=== PATIENT | female | born 1975 | race Caucasian/White ===

== ENCOUNTER → 2020-01-30 10:01 | Outpatient (CLI) | payer OTHER, SELFPAY ==
[2020-02-02 07:09] LABS: Alder IgE <0.10 kU/L (Class 0); Alternaria alternata IgE <0.10 kU/L (Class 0); Aspergillus fumigatus IgE <0.10 kU/L (Class 0); Box Elder IgE <0.10 kU/L (Class 0); Cladosporium herbarum IgE <0.10 kU/L (Class 0); Cottonwood IgE <0.10 kU/L (Class 0); D farinae IgE <0.10 kU/L (Class 0); D pteronyssinus IgE <0.10 kU/L (Class 0); Dog Dander IgE <0.10 kU/L (Class 0); Elm Tree IgE <0.10 kU/L (Class 0); Immunoglobulin E 56 IU/mL (6-495); Mountain Cedar IgE <0.10 kU/L (Class 0); Mouse Urine Proteins IgE <0.10 kU/L (Class 0); Nettle IgE <0.10 kU/L (Class 0); Oak Tree IgE <0.10 kU/L (Class 0); Penicillium chrysogen IgE <0.10 kU/L (Class 0); Pigweed, Common IgE <0.10 kU/L (Class 0); Ragweed, Short <0.10 kU/L (Class 0); Sheep Sorrel IgE <0.10 kU/L (Class 0); Silver Birch IgE <0.10 kU/L (Class 0); Timothy Grass IgE <0.10 kU/L (Class 0); Walnut Allery IgE < 0.10 kU/L (Class 0); White ash IgE <0.10 kU/L (Class 0)
[2020-02-15 14:53] LABS: Cat Dander IgE <0.10
== END ==
PROVIDERS: Referring Provider Registered Nurse Diabetes Educator; Visit Provider Registered Nurse Diabetes Educator
DX: R51 Headache (principal); F41.9 Anxiety disorder, unspecified; T78.40XA Allergy, unspecified, initial encounter
CPT/HCPCS: 36415; 82785; 86003

== ENCOUNTER → 2020-06-21 08:57 | Outpatient (CLI) | payer OTHER, MEDICAID, SELFPAY ==
[2020-06-21 09:58] LABS: Hematocrit 40.3 % (36-46); Hemoglobin 13.5 g/dL (12.0-16.0); Mean Corpuscular HGB Conc 33.6 % (30-36); Mean Corpuscular Hemoglobin 29.2 PG (26-34); Mean Corpuscular Volume 86.8 fL (80-100); Platelet Count 145 X10^3/uL (150-400); Red Blood Cell Count 4.64 X10^6/uL (4.0-5.2); Red Cell Distribution Width 12.8 % (11.6-14.8); White Blood Cell Count 5.6 X10^3/uL (4.5-11.0)
[2020-06-21 10:33] LABS: Alanine Aminotransferase 17 IU/L (<35); Albumin 4.1 g/dL (3.5-5.0); Albumin Globulin Ratio 1.5 (1.0-2.8); Alkaline Phosphatase 56 U/L (38-126); Aspartate Aminotransferase 25 IU/L (14-36); BUN Creatinine Ratio 27.9 (6-22); Bilirubin Total 0.7 mg/dL (0.2-1.3); Blood Urea Nitrogen 17 mg/dL (7-17); Calcium 9.4 mg/dL (8.4-10.2); Carbon Dioxide 30 mmol/L (22-32); Chloride 105 mmol/L (98-107); Cholesterol 172 mg/dL (140-199); Estimated Glomerular Filt Rate > 60.0 mL/min (>60); Globulin 2.8 g/dL (1.7-4.1); Glucose 84 mg/dL (70-100); HDL Cholesterol 60 mg/dL (40-60); HEMOLYSIS < 15 (0-50); LDL Cholesterol Calculated 93 mg/dL (<100); Potassium 4.4 mmol/L (3.4-5.1); Sodium 137 mmol/L (137-145); Total Protein 6.9 g/dL (6.3-8.2); Triglycerides 96 mg/dL (35-150)
[2020-06-21 11:01] LABS: TSH w/ Reflex to FT4 4.27 uIU/mL (0.47-4.68)
== END ==
PROVIDERS: PCP Registered Nurse Diabetes Educator; Referring Provider Registered Nurse Diabetes Educator; Visit Provider Registered Nurse Diabetes Educator
DX: Z00.00 Encounter for general adult medical examination without abnormal findings (principal); F41.9 Anxiety disorder, unspecified; G43.909 Migraine, unspecified, not intractable, without status migrainosus
CPT/HCPCS: 36415; 80053; 80061; 84443; 85027

== ENCOUNTER → 2020-07-21 13:42 | Outpatient (CLI) | payer OTHER, MEDICAID, SELFPAY ==
--- NOTE | 2020-07-21 13:42 | DI.MG.S_ITS ---
BILATERAL DIGITAL SCREENING MAMMOGRAM 3D/2D WITH CAD: 07/21/2020 CLINICAL: Routine screening. Family history of breast cancer. Comparison is made to exams dated: 12/21/2015 mammogram, 01/30/2017 mammogram, 02/08/2018 mammogram, and 05/12/2019 mammogram - outside location. The tissue of both breasts is heterogeneously dense. This may lower the sensitivity of mammography. Current study was also evaluated with a Computer Aided Detection (CAD) system. There are grouped calcifications with associated biopsy clip in the left breast. No significant masses, calcifications, or other findings are seen in either breast. There has been no significant interval change. IMPRESSION: BENIGN There is no mammographic evidence of malignancy. A 1 year screening mammogram is recommended. This exam was interpreted at Station ID: [id number]. NOTE: For mammograms, a report in lay terms will be sent to the patient. Approximately 15% of breast malignancies will not be visualized mammographically. In the management of a palpable breast mass, a negative mammogram must not discourage biopsy of a clinically suspicious lesion. Electronically Signed By: Umang Pan M.D. at/:07/23/2020 08:48:23 letter sent: Normal Exam ACR BI-RADS Category 2: Benign Finding(s) 3342F
== END ==
PROVIDERS: PCP Registered Nurse Diabetes Educator; Referring Provider Registered Nurse Diabetes Educator; Visit Provider Registered Nurse Diabetes Educator
DX: Z12.31 Encounter for screening mammogram for malignant neoplasm of breast (principal); Z80.3 Family history of malignant neoplasm of breast
CPT/HCPCS: 77063; 77067

== ENCOUNTER → 2020-09-12 07:35 | Outpatient (CLI) | payer OTHER, MEDICAID, SELFPAY ==
[2020-09-12] MEDS: COVID-19 VACC, Ad26(JANSSEN)/PF 0.5 ML IM (07:43)
== END ==
PROVIDERS: PCP Registered Nurse Diabetes Educator; Visit Provider Internal Medicine
DX: Z23 Encounter for immunization (principal)
CPT/HCPCS: 0031A; 91303

== ENCOUNTER → 2021-07-23 15:53 | Outpatient (CLI) | payer OTHER, SELFPAY ==
--- NOTE | 2021-07-23 15:55 | DI.MG.S_ITS ---
BILATERAL DIGITAL SCREENING MAMMOGRAM 3D/2D WITH CAD: 07/23/2021 CLINICAL: Routine screening. Family history of breast cancer. Comparison is made to exams dated: 07/21/2020 mammogram - [facility], 05/12/2019 mammogram, and 02/08/2018 mammogram - outside location. The tissue of both breasts is heterogeneously dense. This may lower the sensitivity of mammography. Current study was also evaluated with a Computer Aided Detection (CAD) system. There are benign calcifications in the left breast. There also is a biopsy clip in the left breast. No significant masses, calcifications, or other findings are seen in either breast. There has been no significant interval change. IMPRESSION: BENIGN There is no mammographic evidence of malignancy. A 1 year screening mammogram is recommended. This exam was interpreted at Station ID: [id number]. NOTE: For mammograms, a report in lay terms will be sent to the patient. Approximately 15% of breast malignancies will not be visualized mammographically. In the management of a palpable breast mass, a negative mammogram must not discourage biopsy of a clinically suspicious lesion. Electronically Signed By: Paco Guillermo M.D., jr/ana:07/24/2021 09:34:49 letter sent: Normal Exam ACR BI-RADS Category 2: Benign Finding(s) 3342F
== END ==
PROVIDERS: PCP Registered Nurse Diabetes Educator; Referring Provider Registered Nurse Diabetes Educator; Visit Provider Registered Nurse Diabetes Educator
DX: Z12.31 Encounter for screening mammogram for malignant neoplasm of breast (principal)
CPT/HCPCS: 77063; 77067

== ENCOUNTER → 2022-09-04 16:24 | Outpatient (CLI) | payer OTHER, SELFPAY ==
--- NOTE | 2022-09-04 16:25 | DI.MG.S_ITS ---
BILATERAL DIGITAL SCREENING MAMMOGRAM 3D/2D WITH CAD: 09/04/2022 CLINICAL: Routine screening. Family history of breast cancer. Comparison is made to exams dated: 07/23/2021 mammogram, 07/21/2020 mammogram - [facility], 05/12/2019 mammogram, and 01/30/2017 mammogram - outside location. Both breasts are heterogeneously dense, which may obscure small masses (category c / 51-75% glandular tissue). Current study was also evaluated with a Computer Aided Detection (CAD) system. There are benign calcifications in both breasts. There also is a biopsy clip in the left breast. No significant masses, calcifications, or other findings are seen in either breast. There has been no significant interval change. IMPRESSION: BENIGN There is no mammographic evidence of malignancy. A 1 year screening mammogram is recommended. Based on Tyrer-Cuzick model (a risk assessment model), the patient's lifetime risk is 25.9% and her 10 year risk is 6.2%. If a patient has an elevated risk, a more comprehensive evaluation should be considered and/or a referral to a genetic counselor. The [place] [employer], [employer], and NCCN Guidelines advise the consideration of Breast MRI as an adjunct to screening mammography in patients whose Lifetime risk to develop breast cancer is 20% or higher. This exam was interpreted at Station ID: [id number]. NOTE: For mammograms, a report in lay terms will be sent to the patient. Approximately 15% of breast malignancies will not be visualized mammographically. In the management of a palpable breast mass, a negative mammogram must not discourage biopsy of a clinically suspicious lesion. Electronically Signed By: Bib blackwell/ana:09/05/2022 09:04:04 letter sent: Normal Exam ACR BI-RADS Category 2: Benign Finding(s) 3342F
== END ==
PROVIDERS: PCP Nurse Practitioner Family; Referring Provider Nurse Practitioner Family; Visit Provider Nurse Practitioner Family
DX: Z12.31 Encounter for screening mammogram for malignant neoplasm of breast (principal); Z80.3 Family history of malignant neoplasm of breast
CPT/HCPCS: 77063; 77067

== ENCOUNTER 2023-07-10 21:48 | Emergency (ER) | payer OTHER, SELFPAY ==
[2023-07-10 22:00] VITALS: BP 136/59; PULSE 69; RESP 16; TEMP 36.9; O2SAT 98; BMI 24.2
--- NOTE | 2023-07-10 22:01 | PC.NURSE ---
pt was skiing on when she injured her right knee, states she heard/felt a pop but there was no swelling or bruising to the area, pt has been able to tolerate weight bearing until today she has not been able to tolerate weight bearing, pt took aleve tonight without any relief. knee does not appear swollen and no obvious deformity noted
--- NOTE | 2023-07-10 22:28 | ED_ITS ---
HPI - Extremity Injury (Lower) General Chief Complaint: Extremity Injury, Lower Stated Complaint: rt knee injury Time Seen by Provider: 07/10/23 21:53 Source: patient and family Mode of arrival: Wheelchair History of Present Illness HPI Narrative: 47-year-old female presents with right knee pain after reportedly falling to the ground several hours prior to arrival after her knee ?buckled?. Pain is described as a dull, throbbing ache. Patient reports injuring her right knee on 06/30 while downhill skiing and reports evaluation by orthopedist the following day with concern for anterior cruciate ligament injury. Patient reports that she has been walking several miles a day on her knee and has been relatively comfortable until today's episode. Patient reports negative x-rays taken at the time of injury. Patient reports having difficulty obtaining MRI of her knee. No medications used for symptom relief. Patient arrives via private vehicle. Patient is awake, alert in no apparent distress and maintaining her own airway. Related Data Home Medications Medication Instructions Recorded Confirmed levonorgestrel 21 mcg/24 hours (8 intrauterine 01/30/20 05/06/22 yrs) 52 mg intrauterine device (Mirena) Previous Rx's Medication Instructions Recorded rizatriptan 10 mg tablet (Maxalt) See Rx Instructions PO .COMPLEX 06/24/21 #30 tabs valacyclovir 500 mg tablet 500 mg PO BID PRN outbreak #30 tabs 06/24/21 escitalopram oxalate 20 mg tablet 20 mg PO DAILY #30 tabs 08/06/22 Allergies Allergy/AdvReac Type Severity Reaction Status Date / Time No Known Drug Allergies Allergy Unverified 05/06/22 14:25 Review of Systems Review of Systems Narrative: See HPI for pertinent positives, otherwise review of systems negative Patient History Medical History High risk HPV infection Wears glasses Allergies Anxiety (~1995) Migraines (~1992) Headache Fractures (~1993) Hearing loss (~2007) Irregular menstrual cycle (~1989) Herpes (~2000) Surgical History Anesthesia History of biopsy (~2017) History of tonsillectomy and adenoidectomy (~1980) History of ear surgery Family History Grandmother No problems noted. Social History Smoking Status: Current every day smoker alcohol intake: current substance use type: does not use Smoking Status: Current every day smoker alcohol intake frequency: holidays/special occasions only Substance Use Type: marijuana Exam Initial Vital Signs Initial Vital Signs: Vital Signs Temperature 98.5 F 07/10/23 22:00 Pulse Rate 69 07/10/23 22:00 Respiratory Rate 16 07/10/23 22:00 Blood Pressure 136/59 L 07/10/23 22:00 Pulse Oximetry 98 07/10/23 22:00 Oxygen Delivery Method Room Air 07/10/23 22:00 Const General: cooperative, healthy appearing, comfortable, well developed, well groomed, No acute distress, anxious, No diaphoretic and No ill appearing HENMT Head: normal to inspection, normocephalic and atraumatic Eyes General: Yes appearance normal, both eyes and all related structures Neck Neck: normal visual inspection Resp Effort & Inspection: normal respiratory effort, able to speak in complete sentences and no respiratory distress Cardio Rate: regular rate Rhythm: regular rhythm GI Inspection: non-distended Other: Exam deferred Back/Spine/Pelvis Back: normal to inspection Skin General: no rashes or lesions noted Neuro General: patient alert, patient awake, patient oriented x3 and moves all extremities Extrem Right lower extremity: normal capillary refill Other: Right medial knee tenderness, with minor right knee effusion. Range of motion not limited Psych Appearance: grossly normal and well kempt Speech and Movement: speech and movement normal Course Course Course Narrative: See [facility] Vital Signs Vital signs: Vital Signs - 8 hr 07/10/23 22:00 Temperature 98.5 F Pulse Rate 69 Respiratory Rate 16 Blood Pressure 136/59 L Pulse Oximetry 98 Oxygen Delivery Method Room Air [facility] - Extremity Injury (Lower) Differential Diagnosis Differential diagnosis: Likely acute internal derangement of knee, fracture of femur and other (knee strain, meniscus tear, acute fracture tibia) [facility] Narrative Medical decision making narrative: Patient presents with history right knee pain and likely internal derangement of right knee secondary to fall drain downhill skiing. Patient has been active, ambulatory and with manageable, relatively minor discomfort. Patient appears to have been walking with ?knee buckling? resulting in further injury likely ligamentous injury. Minor knee effusion. Likelihood of underlying bony abnormalities this fracture is low. X-rays ordered but ultimately declined by patient. Pain control discussed with patient and patient wanted to avoid narcotics. Recommendation given free alternating use of ibuprofen/acetaminophen for pain control and continued use of rest, ice and elevation. Patient encouraged to follow up with Orthopedics for further evaluation and management and to obtain MRI right knee as an outpatient. Patient encouraged to use crutches for nonweightbearing. Return precautions given. Patient discharged home in stable condition. Discharge Plan Departure Patient Disposition: Home Clinical Impression: Knee pain, right Qualifiers: Chronicity: acute Qualified Code(s): M25.561 - Pain in right knee Instructions: DI for Knee Pain Activity Restrictions/Additional Instructions: Use alternating dosages of ibuprofen/acetaminophen as directed and as needed for symptom relief. Use knee brace daily. Nonweightbearing. Follow up with Orthopedics as soon as possible for further evaluation and management. Prescriptions: Continued escitalopram oxalate 20 mg tablet 20 mg PO DAILY Qty: 30 0RF Rx Instructions: Take one tab by mouth daily. Mirena 20 mcg/24 hours (5 yrs) 52 mg intrauterine device intrauterine rizatriptan [Maxalt] 10 mg tablet See Rx Instructions PO .COMPLEX Qty: 30 3RF Rx Instructions: take 1 tab at onset of headache; if no relief may repeat 1 tab after at least 2 hrs; max = 3 tabs/24 hr PO valacyclovir 500 mg tablet 500 mg PO BID PRN (Reason: outbreak) Qty: 30 2RF Rx Instructions: Take 1 tab twice daily for 3 days at onset of outbreak. Contains enough for multiple outbreaks. Referrals: Lashawn Vale FNP-[facility] [Primary Care Provider] - Alec Cassidy MD [Physician] - As soon as possible Stand Alone Forms: Patient Portal/API
== END 2023-07-10 22:36 | disposition home or self-care (01) ==
PROVIDERS: Emergency Provider Emergency Medicine; PCP Nurse Practitioner Family
DX: M25.561 Pain in right knee (principal)
CPT/HCPCS: 99281; 99282

== ENCOUNTER 2023-08-19 17:18 | Emergency (ER) | payer OTHER, SELFPAY ==
[2023-08-19 17:27] VITALS: BP 120/56; PULSE 65; RESP 18; TEMP 36.8; O2SAT 98; BMI 25.0
--- NOTE | 2023-08-19 18:10 | DI.US.S_ITS ---
PROCEDURE: US PERIPH VENOUS LOW EXTREM RT INDICATIONS: NUMBNESS, EDEMA 7 DAYS POST RIGHT ARTHROSCOPIC KNEE SURGERY TECHNIQUE: Real-time imaging, as well as color and pulse Doppler interrogation, were performed of the lower extremity deep veins from the inguinal ligament to the popliteal fossa, with documentation of the visualized calf veins. COMPARISON: None. FINDINGS: The common femoral, femoral, popliteal, and the visualized calf veins are normally compressible, and free of intraluminal thrombus. Color and pulse Doppler demonstrate normal phasic intraluminal flow. There is normal augmentation response to distal compression maneuver. IMPRESSION: No evidence of DVT in visualized right lower extremity veins. Dictated by: aBron Spence M.D. on 08/19/2023 at 19:13 Approved by: Baron Spence M.D. on 08/19/2023 at 19:16
[2023-08-19 18:33] LABS: Add Manual Diff / Slide Review NO; Basophils Absolute Auto 100 /uL (0-100); Eosinophils Absolute Auto 300 /uL (0-450); Eosinophils Percent Auto 3.7 % (2-4); Hematocrit 36.3 % (36-46); Hemoglobin 12.4 g/dL (12.0-16.0); Lymphocytes Absolute Auto 1800 /uL (1100-4500); Lymphocytes Percent Auto 23.4 % (25-40); Mean Corpuscular Hemoglobin 29.1 PG (26-34); Mean Corpuscular Volume 85.6 fL (80-100); Monocytes Absolute Auto 600 /uL (0-900); Monocytes Percent Auto 7.5 % (3-14); Neutrophils Absolute Auto 5000 /uL (1500-7000); Neutrophils Percent Auto 64.4 % (50-75); Platelet Count 178 X10^3/uL (150-400); Red Blood Cell Count 4.25 X10^6/uL (4.0-5.2); Red Cell Distribution Width 12.5 % (11.6-14.8); White Blood Cell Count 7.8 X10^3/uL (4.5-11.0)
[2023-08-19 18:44] LABS: Lactate (Lactic Acid) 0.6 mmol/L (0.7-2.1)
[2023-08-19 18:45] LABS: Alanine Aminotransferase 23 IU/L (<35); Albumin 4.1 g/dL (3.5-5.0); Albumin Globulin Ratio 1.3 (1.0-2.8); Alkaline Phosphatase 56 U/L (38-126); Aspartate Aminotransferase 26 IU/L (14-36); Bilirubin Total 0.7 mg/dL (0.2-1.3); Blood Urea Nitrogen 13 mg/dL (7-17); Calcium 9.5 mg/dL (8.4-10.2); Carbon Dioxide 25 mmol/L (22-32); Chloride 104 mmol/L (98-107); Estimated Glomerular Filt Rate > 60 mL/min (>60); Globulin 3.1 g/dL (1.7-4.1); Glucose 89 mg/dL (70-100); HEMOLYSIS < 15 (0-50); Potassium 4.3 mmol/L (3.4-5.1); Sodium 137 mmol/L (137-145); Total Protein 7.2 g/dL (6.3-8.2)
--- NOTE | 2023-08-19 20:08 | ED_ITS ---
HPI - Extremity Problem General Chief complaint: Extremity Problem,Nontraumatic Stated complaint: Right leg post op issues Time Seen by Provider: 08/19/23 18:09 Source: patient Mode of arrival: Family Vehicle History of Present Illness HPI Narrative: 48-year-old woman who had knee surgery including ACL meniscus repair in [place] 7 days ago. She presents today complaining of her leg being increasing swollen and red. She notes that she has been up on the leg and ambulating more than had been recommended. She works as a teacher in multiple different schools, getting in and out of her car to get into the buildings has been more activity than she had anticipated. She has also not taken the opportunity to ice her leg during the day. She is icing at night and she is keeping it elevated. Related Data Home Medications Medication Instructions Recorded Confirmed levonorgestrel 21 mcg/24 hours (8 intrauterine 01/30/20 05/06/22 yrs) 52 mg intrauterine device (Mirena) Previous Rx's Medication Instructions Recorded rizatriptan 10 mg tablet (Maxalt) See Rx Instructions PO .COMPLEX 06/24/21 #30 tabs valacyclovir 500 mg tablet 500 mg PO BID PRN outbreak #30 tabs 06/24/21 escitalopram oxalate 20 mg tablet 20 mg PO DAILY #30 tabs 08/06/22 Allergies Allergy/AdvReac Type Severity Reaction Status Date / Time No Known Drug Allergies Allergy Unverified 05/06/22 14:25 Review of Systems Review of Systems Narrative: Pertinent positive and negative findings as per HPI Patient History Medical History High risk HPV infection Wears glasses Allergies Anxiety (~1995) Migraines (~1992) Headache Fractures (~1993) Hearing loss (~2007) Irregular menstrual cycle (~1989) Herpes (~2000) Surgical History Anesthesia History of biopsy (~2017) History of tonsillectomy and adenoidectomy (~1980) History of ear surgery Family History Grandmother No problems noted. Social History Smoking Status: Current every day smoker alcohol intake: current substance use type: does not use Smoking Status: Current every day smoker alcohol intake frequency: holidays/special occasions only Substance Use Type: marijuana Exam Initial Vital Signs Initial Vital Signs: Vital Signs Temperature 98.2 F 08/19/23 17:27 Pulse Rate 65 08/19/23 17:27 Respiratory Rate 18 08/19/23 17:27 Blood Pressure 120/56 L 08/19/23 17:27 Pulse Oximetry 98 08/19/23 17:27 Oxygen Delivery Method Room Air 08/19/23 17:27 General: Alert appropriate in no acute distress Respiratory: Able to speak in full sentences, no obvious respiratory distress Skin: No obvious rashes, warm and dry Neurologic: Grossly intact no obvious asymmetries or abnormalities Psych: appropriate insight and affect, cooperative Right lower extremity is slightly more swollen than the left. All of the laparoscopic incisions are healing nicely. There is no surrounding erythema. She has as expected postoperatively amount of pain in her knee. She is able to toe touch. This does not appear to be the severe pain expected with septic arthritis. She does not have any midline calf tenderness. She notes slight decreased sensation in the entire calf and foot in a stocking-like distribution along with inflammation in the entire area. She does have good pedal pulses and good capillary refill Course Orders Ordered: ED Orders 08/19/23 18:10 US periph venous low extrem rt Stat 08/19/23 18:23 Complete Blood Count AUTO DIFF Stat Comprehensive Metabolic Panel Stat Lactate (Lactic Acid) Stat Vital Signs Vital signs: Vital Signs - 8 hr 08/19/23 17:27 Temperature 98.2 F Pulse Rate 65 Respiratory Rate 18 Blood Pressure 120/56 L Pulse Oximetry 98 Oxygen Delivery Method Room Air MDM - Extremity (Nontraumatic) Lab Data 08/19/23 18:23 08/19/23 18:23 Labs: Lab Results 08/19/23 Range/Units 18:23 WBC 7.8 (4.5-11.0) X10^3/uL RBC 4.25 (4.0-5.2) X10^6/uL Hgb 12.4 (12.0-16.0) g/dL Hct 36.3 (36-46) % MCV 85.6 (80-100) fL MCH 29.1 (26-34) PG MCHC 34.0 (30-36) % RDW 12.5 (11.6-14.8) % Plt Count 178 (150-400) X10^3/uL Neut % (Auto) 64.4 (50-75) % Lymph % (Auto) 23.4 L (25-40) % [place] % (Auto) 7.5 (3-14) % Eos % (Auto) 3.7 (2-4) % Baso % (Auto) 1.0 (0-2) % Neut # (Auto) 5000 (1877-8814) /uL Lymph # (Auto) 1800 (0729-6103) /uL [place] # (Auto) 600 (0-900) /uL Eos # (Auto) 300 (0-450) /uL Baso # (Auto) 100 (0-100) /uL Sodium 137 (137-145) mmol/L Potassium 4.3 (3.4-5.1) mmol/L Chloride 104 (98-107) mmol/L Carbon Dioxide 25 (22-32) mmol/L BUN 13 (7-17) mg/dL Creatinine 0.59 (0.52-1.04) mg/dL Estimated GFR > 60 (>60) mL/min BUN/Creatinine Ratio 22.0 (6-22) Glucose 89 (70-100) mg/dL Lactate 0.6 L (0.7-2.1) mmol/L Calcium 9.5 (8.4-10.2) mg/dL Total Bilirubin 0.7 (0.2-1.3) mg/dL AST 26 (14-36) IU/L ALT 23 (<35) IU/L Alkaline Phosphatase 56 (38-126) U/L Total Protein 7.2 (6.3-8.2) g/dL Albumin 4.1 (3.5-5.0) g/dL Globulin 3.1 (1.7-4.1) g/dL Albumin/Globulin Ratio 1.3 (1.0-2.8) MDM Narrative Medical decision making narrative: CC: Right leg pain increased swelling redness and paresthesia 7 days postop right meniscal surgery Complicating co-morbidities: Knee surgery 7 days ago Data collected from: patient Differential considered: Normal postop pain, septic joint, cellulitis, DVT Exam documented above, pertinent findings include: Leg is slightly more swollen than the left leg. There is no dramatic redness, surgical sites are healing nicely. Lab Test results independently reviewed as above. Pertinent findings: CBC is unremarkable Chemistries are reassuring Imaging studies independently reviewed: Ultrasound of the lower extremity does not show any evidence of DVT Discussion: 48-year-old woman 7 days postop who has returned to work and is doing quite a bit of walking and ambulating and noticing increasing swelling and tenderness. We talked about actually taking some time to keep the leg elevated. Using ice during the day, compression socks, elevating night and ways to continue elevation while she is sleeping. Reassurance is given. Reviewed all of the blood work and imaging studies. She will follow up with her orthopedist and she does have access to her electronic medical record to share labs and imaging studies with her orthopedist in [place]. Questions are answered and she is safe for discharge Discharge Plan Departure Patient Disposition: Home Clinical Impression: Acute pain of right lower extremity, Post-operative pain Instructions: DI for Knee Arthroscopy Activity Restrictions/Additional Instructions: Thank you for coming in today Your ultrasound does not show evidence of a blood clot. Your labs are reassuring and there is no evidence of postoperative infection or infection inside the joint. The swelling in the decreased sensation in the lower part of your leg are all within the realm of normal postoperative healing. You likely would benefit from having your leg increased and resting more frequently. It may be beneficial trying to ice your knee during the day as well. As much as you can do to decrease overall activity and truly allow your leg to heal we will be beneficial. It is safe for you to go home at this time. I do recommend you follow-up with your orthopedic surgeon. If you have worsening symptoms, fevers, increasing redness or pain it would be very appropriate to return to the ER Prescriptions: No Action escitalopram oxalate 20 mg tablet 20 mg PO DAILY Qty: 30 0RF Rx Instructions: Take one tab by mouth daily. Mirena 20 mcg/24 hours (5 yrs) 52 mg intrauterine device intrauterine rizatriptan [Maxalt] 10 mg tablet See Rx Instructions PO .COMPLEX Qty: 30 3RF Rx Instructions: take 1 tab at onset of headache; if no relief may repeat 1 tab after at least 2 hrs; max = 3 tabs/24 hr PO valacyclovir 500 mg tablet 500 mg PO BID PRN (Reason: outbreak) Qty: 30 2RF Rx Instructions: Take 1 tab twice daily for 3 days at onset of outbreak. Contains enough for multiple outbreaks. Referrals: Lashawn Vale FNP-BC [Primary Care Provider] - Stand Alone Forms: Patient Portal/API
[2023-08-19 20:20] VITALS: PULSE 60
[2023-08-19 20:37] VITALS: BP 127/77; PULSE 62; RESP 14; O2SAT 99
== END 2023-08-19 20:40 | disposition home or self-care (01) ==
PROVIDERS: Emergency Provider Emergency Medicine; PCP Nurse Practitioner Family
DX: G89.18 Other acute postprocedural pain (principal); M25.561 Pain in right knee
CPT/HCPCS: 80053; 83605; 85025; 93971; 99281; 99284